=== PATIENT | female | born 1985 | race Caucasian/White ===

== ENCOUNTER 2024-01-13 08:41 | Outpatient (CLI) | payer OTHER, SELFPAY ==
[2024-01-13 20:13] LABS: Alanine Aminotransferase 23 U/L (12-78); Albumin Level 4.1 g/dl (3.5-5.0); Anion Gap 9.2 mEq/L (5-15); Aspartate Amino Transferase 26 U/L (14-36); Bilirubin,Total 0.4 mg/dl (0.2-1.3); Blood Urea Nitrogen 12 mg/dl (7-17); Calcium 9.3 mg/dl (8.4-10.2); Carbon Dioxide 28 mmol/L (22.0-30.0); Chloride 106 mmol/L (98-107); Estimated Glomerular Filt Rate 94 ml/min (>60); GFR (African American) 113 ML/MIN (>60); Glucose 85 mg/dl (74-100); Potassium 4.2 mmoL/L (3.5-5.1); Sodium 139 mmol/L (136-145); Total Protein,Serum 7.1 g/dl (6.3-8.2)
[2024-01-13 20:14] LABS: Albumin/Globulin Ratio 1.4 (1.1-1.8); Alkaline Phosphatase 64 U/L (38-126); Cholesterol 216 mg/dl (140-200); HDL Cholesterol 72 mg/dl (40-60); Triglycerides 68 mg/dl (30-150); VLDL Cholesterol 14 mg/dL (0-40)
[2024-01-13 20:24] LABS: Direct LDL Cholesterol 112.35 mg/dL (100-129)
== END 2024-01-13 23:59 | disposition home or self-care (01) ==
LOC: LAB.DROPOF 01-14 09:30
PROVIDERS: PCP Family Medicine; Visit Provider Family Medicine
DX: Z90.710 Acquired absence of both cervix and uterus (principal); R53.83 Other fatigue; E78.5 Hyperlipidemia, unspecified; E03.9 Hypothyroidism, unspecified
CPT/HCPCS: 80053; 80061; 84443